=== PATIENT | female | born 1970 | race Caucasian/White ===

== ENCOUNTER → 2016-07-07 16:58 | Outpatient (CLI) | payer MEDICARE ==
[2014-02-21 07:54] VITALS: BMI 39.4
[~2016-07-07 16:58] MED LIST: CYCLOBENZAPRINE10 MG PO; EFFEXOR100 MG PO; EFFEXOR37.5 MG PO; GLUCOPHAGE1000 MG PO; HYDROCODONE-APA1 TAB PO; LISINOPRIL5 MG PO; MOBIC7.5 MG PO; NEURONTIN 300300 MG; NORCO 7.5/325 T1 TA1 PO; PHENERGAN25 M1 PO; PRAVACHOL20 MG PO; XANAX0.5 MG PO
== END | disposition home or self-care (01) ==
LOC: D.MAMMO 15:45
DX: Z12.31 Encounter for screening mammogram for malignant neoplasm of breast (principal)

== ENCOUNTER 2018-06-18 08:00 | Outpatient (CLI) | payer MEDICARE ==
[2014-02-21 07:54] VITALS: BMI 39.4
== END 2018-06-18 08:01 | disposition home or self-care (01) ==
LOC: D.MAMMO 08:00
PROVIDERS: ATTEND Family Medicine Adult Medicine
DX: Z12.31 Encounter for screening mammogram for malignant neoplasm of breast (principal)

== ENCOUNTER 2019-11-27 18:30 | Outpatient (CLI) | payer MEDICARE ==
[2014-02-21 07:54] VITALS: BMI 39.4
== END 2019-11-27 23:59 | disposition home or self-care (01) ==
LOC: D.MAMMO 18:30
PROVIDERS: ATTEND Family Medicine Adult Medicine
DX: Z12.31 Encounter for screening mammogram for malignant neoplasm of breast (principal)